=== PATIENT | female | born 1990 | race Caucasian/White ===

== ENCOUNTER → 2017-08-21 | Emergency (ER) | payer OTHER ==
[~2017-08-21] VITALS: Ht 160 cm; Wt 63.0 kg
[~2017-08-21] MED LIST: ZANTAC300 MG PO
== END | disposition home or self-care (01) ==
LOC: ER 19:29
DX: O21.0 Mild hyperemesis gravidarum (principal); Z34.01 Encounter for supervision of normal first pregnancy, first trimester